=== PATIENT | male | born 1990 | race Caucasian/White ===

== ENCOUNTER 2017-11-30 23:22 | Emergency (ER) | payer BC ==
--- NOTE | 2017-12-01 00:57 | EDM.PDOC ---
ED HPI GENERAL MEDICAL PROBLEM - General Chief Complaint: Laceration Stated Complaint: FELL CUT CHIN Time Seen by Provider: 12/01/17 00:52 - History of Present Illness Treatments MEDICAL DRIVER: Reports: Dressing(s) Under Chin Pain Score (Numeric/FACES): 4 - Related Data Allergies Allergy/AdvReac Type Severity Reaction Status Date / Time No Known Allergies Allergy Verified 12/01/17 00:09 Home Meds: Home Meds NK [No Known Home Meds] 12/01/17 [History] Social & Family History - Tobacco Use Smoking Status *Q: Current Every Day Smoker Years of Tobacco use: 12 Packs/Tins Daily: 1 Second Hand Smoke Exposure: No - Caffeine Use Caffeine Use: Reports: Coffee - Alcohol Use Days Per Week of Alcohol Use: 3 Number of Drinks Per Day: 6 Total Drinks Per Week: 18 - Recreational Drug Use Recreational Drug Use: No ED ROS GENERAL - Review of Systems Review Of Systems: See Below ED EXAM, SKIN/RASH Exam: See Below Exam Limited By: Other (Left without being seen) Course - Vital Signs Last Recorded V/S: Last Vital Signs Temp 37.1 C 12/01/17 00:06 Pulse 125 H 12/01/17 00:06 Resp 14 12/01/17 00:06 BP 182/98 H 12/01/17 00:06 Pulse Ox 97 12/01/17 00:06 Departure - Departure Time of Disposition: 00:54 Disposition: Eloped 07 Clinical Impression: Chin laceration - Discharge Information Referrals: Gerardo Perkins MD [Primary Care Provider] - Additional Instructions: This patient left without being seen. I spoke with the nurse and she told him that his blood pressure was high also.
== END 2017-12-01 01:11 | disposition left against medical advice (07) ==
LOC: JP.ED 23:22
DX: Z53.21 Procedure and treatment not carried out due to patient leaving prior to being seen by health care provider (principal)
CPT/HCPCS: 99283